=== PATIENT | female | born 1985 | race Caucasian/White ===

== ENCOUNTER 2021-07-15 14:00 | Outpatient (RCR) | payer OTHER, SELFPAY ==
--- NOTE | 2020-11-27 19:55 | MHC.PT.EP ---
[facility] [place] Office [place] Office [place] Office [address] [phone] F: [phone] F: [phone] F: [phone] F: [phone] Physical Therapy Plan of Care Date of Evaluation: 11/27/20 Date of Surgery: Diagnosis: LBP Assessment: lumbopelvic dysfunction resulting in decreased tolerance and ability to perform ambulatory, standing and sitting tasks for duration as well as lifting objects of weight, rolling in bed, and performing LE dressing secondary to decreased hip and core strength, decreased trunk ROM as well as decreased posture, increased tissue tension, pelvic asymmetry and pain. Pt is deemed an appropriate candidate to receive skilled PT in order to address her physical limitations to improve her functional ability. Frequency and Duration: The patient will be seen Short Term Goals: In 1 week: initiate HEP with evidence of compliance. Halfway Goals: In 5 weeks: I with HEP. In 5 weeks: Pt will be able to Treatment Plan: Modalities to reduce pain, spasms and effusion. Manual therapy to restore motion and function. Therapeutic exercise to improve strength and flexibility. Neuromuscular re-education for posture and balance. Therapeutic activities to return to functional activities of daily living. Electronically signed by: Ang Mcwilliams PT. Please sign and return to therapist. Thank you for your referral.
--- NOTE | 2020-12-03 16:37 | MHC.PT.EP ---
[facility] [place] Office [place] Office [place] Office [address] [phone] F: [phone] F: [phone] F: [phone] F: [phone] Physical Therapy Plan of Care Date of Evaluation: 12/03/20 Date of Surgery: Diagnosis: LBP Assessment: Pt is a 35 y/o female referred to PT for eval and treat of LBP who presents with lumbopelvic dysfunction resulting in decreased tolerance and ability to perform ambulatory, standing and sitting tasks for duration as well as lifting objects of weight, and rolling in bed, secondary to decreased hip and core strength, decreased trunk ROM as well as decreased posture, increased tissue tension, pelvic asymmetry and pain. Pt is deemed an appropriate candidate to receive skilled PT in order to address her physical limitations to improve her functional ability. Frequency and Duration: The patient will be seen 2 x / wk x 5 wks. Short Term Goals: In 1 week: initiate HEP with evidence of compliance. In 3 weeks: improve baseline pain with activity to < 5/10; initial: 9/10. Longterm Goals: In 5 weeks: I with HEP. In 5 weeks: Pt will be able to sit as long as she'd like provided choice of seat; initial < 1 hour. In 5 weeks: Pt will improve her core strength to > good; initial: Fair (+) Treatment Plan: Modalities to reduce pain, spasms and effusion. Manual therapy to restore motion and function. Therapeutic exercise to improve strength and flexibility. Neuromuscular re-education for posture and balance. Therapeutic activities to return to functional activities of daily living. Electronically signed by: Ang Mcwilliams PT. Please sign and return to therapist. Thank you for your referral.
--- NOTE | 2021-07-15 15:14 | MHC.PT.DC ---
[facility] [place] Office [place] Office [place] Office [address] Irwin [address] [phone] F: [phone] F: [phone] F: [phone] F: [phone] Physical Therapy Discharge Report Diagnosis: LBP Date of Surgery: Date of Evaluation: 11/27/20 Date of Discharge: 07/15/21 Treatments to Date: 19 Cancellations to Date: 0 No Shows to Date: 0 Discharge Status: Achieved Goals Improved Function Independent with HEP Discharge Summary: Pt is pain free. Pt is independent with her exercises to maintain gains made in therapy. Diastasis recti has improved to less than 2 finger widths. Pt has met all goals. Pt d/c from skilled PT. Electronically signed by: Emma Hu PT DPT Please sign and return to therapist. Thank you for your referral.
== END 2021-10-25 11:25 | disposition home or self-care (01) ==
LOC: HO.PT 14:00
PROVIDERS: PCP Internal Medicine; Visit Provider Internal Medicine
DX: M54.50 Low back pain, unspecified (principal)
CPT/HCPCS: 97014; 97110; 97112; 97140; 97161; 97535

== ENCOUNTER 2022-11-25 08:59 | Outpatient (REF) | payer OTHER, SELFPAY ==
[2022-11-25 12:28] LABS: Alanine Aminotransferase 8 U/L (0-31); Anion Gap 12 (12-20); Aspartate Amino Transferase 13 U/L (5-31); Blood Urea Nitrogen 11 mg/dL (9-16); Calcium 9.1 mg/dL (8.4-10.2); Carbon Dioxide 30 mmol/L (22-29); Chloride 103 mmol/L (96-108); Cholesterol 198 mg/dL; Estimated Glomerular Filt Rate > 60; Glucose Fasting 98 mg/dL (60-99); HDL Cholesterol 52 mg/dL; LDL Cholesterol Calculated 129 mg/dl; Potassium 3.8 mmol/L (3.3-5.1); Sodium 141 mmol/L (135-145); Triglycerides 85 mg/dL
== END 2022-11-25 09:00 | disposition home or self-care (01) ==
LOC: HO.HMGCLDS 08:59
PROVIDERS: PCP Internal Medicine; Visit Provider Internal Medicine
DX: Z00.01 Encounter for general adult medical examination with abnormal findings (principal); F41.9 Anxiety disorder, unspecified; F32.A Depression, unspecified; L40.9 Psoriasis, unspecified
CPT/HCPCS: 36415; 80048; 80061; 84450; 84460

== ENCOUNTER 2023-12-02 07:54 | Outpatient (AMB) | payer OTHER, SELFPAY ==
--- NOTE | 2023-12-02 08:10 | A.OFFPC_ITS ---
<Statement entered by Arelis Atkins MD - 01/24/25 10:32> This note has been administratively?closed. Vital Signs 12/02/23 08:13 Height 5 ft Weight 109 lb BMI 21.3 BP 120/80 Blood Pressure Location Lt brachial Position Sitting Pulse 79 Pulse Source Pulse Oximeter Pulse Oximetry (%) 100 Oxygen Delivery Method Room Air Intake Visit Reasons: Annual PE Intake Note: Pt is here today for her PE: Last papsmear 01/07/23 Is last menstrual period known: Yes Last menstrual period: 11/22/23 Allergies No Known Allergies [No Known Allergies*] Allergy (Verified 12/02/23 08:40) Medication List - Last Reconciled 12/02/23 by Arelis Atkins MD atomoxetine 80 mg PO QAM clindamycin-benzoyl peroxide 1-5 % topical clobetasol 0.05% grams topical PNV #[id number] 30 mg iron-10 mg iron-1 mg caps PO tretinoin 0.05% appl topical Tobacco use date assessed: 12/02/23 Dental Screening Dental Screen Date: 12/02/23 Did you have a dental visit in the last 12 months?: Yes Did you have a dental problem in the last 6 months where you did not have access to dental care?: No Was dental information given to patient?: Patient has dentist [facility] Medical History (Updated 12/02/23 @ 08:45 by Arelis Atkins MD) ADD (attention deficit disorder) Acne vulgaris Anxiety and depression Psoriasis Lumbago Surgical History Hx of section Family History Father Substance abuse Psoriasis Paternal Grandmother Psoriasis Brother Attention deficit disorder Son Attention deficit disorder Social History (Updated 12/02/23 @ 09:04 by Arelis Atkins MD) Housing: House Housing Other:: housing Alcohol intake: never Patient Tobacco Use Status: Never used Tobacco e-Cigarette/Vaping Use: Never Used Second Hand Smoke Exposure: No service: No Current occupational status: unemployed and other Current occupation: housewife Cognitive needs: No Hearing needs: No Vision needs: Yes Female Reproductive History Menstrual Duration of menses: 6-7 days Date of last menstrual period: 11/22/23 control method: permanent sterilization Permanent Sterilization: Vasectomy Date of last pap smear: 01/07/23 Other: sees [facility] Women's , normal pap Questionnaire PHQ-9 Over the last 2 weeks, how often have you been bothered by any of the following problems? 1. Little interest or pleasure in doing things: more than half the days 2. Feeling down, depressed, or hopeless: several days 3. Trouble falling or staying asleep, or sleeping too much: more than half the days 4. Feeling tired or having little energy: more than half the days 5. Poor appetite or overeating: not at all 6. Feeling bad about yourself - or that you are a failure or have let yourself or your family down: not at all 7. Trouble concentrating on things, such as reading the newspaper or watching television: several days 8. Moving or speaking so slowly that other people could have noticed. Or the opposite - being so fidgety or restless that you have been moving around a lot more than usual: several days 9. Thoughts that you would be better off or of hurting yourself in some way: not at all Total score: 9 Depression Screening Interpretation: Positive (sees Psychiatry and had recent neuropsych eval) Depression Screening Follow-up: Existing condition, In treatment and Community Mental Health Worker F/U Depression Screening Done: Yes Source: Developed by Drs. Nikhil Harrison, Kalyn Christopher, Jose A Medrano and colleagues, with an educational venus from [employer]. Thrive Questionnaire Date Thrive assessed: 11/25/22 I am a: Patient What is your living situation today?: I have a steady place to live Within the past 12 months, did the food you bought not last and you didn't have the money to get more?: Never true Within the past 12 months, did you worry whether your food would run out before you got money to buy more?: Never true THRIVE Score: 0 AUDIT C Alcohol Use Questionnaire (AUDIT-C) 1. How often do you have a drink containing alcohol?: Monthly or less 2. How many drinks containing alcohol do you have on a typical day when you are drinking?: 1 or 2 3. How often do you have six or more drinks on one occasion?: Never Total Score: 1 SONJA-7 AMB Questionnaire SONJA-7 Date SONJA - 7 assessed: 12/02/23 Feeling nervous, anxious, or on edge: 2 = More than half the days Not being able to stop or control worryin = More than half the days Worrying too much about different things: 3 = Nearly every day Trouble relaxin = Nearly every day Being so restless that it is hard to sit still: 2 = More than half the days Becoming easily annoyed or irritable: 1 = Several days Feeling afraid as if something awful might happen: 1 = Several days Total SONJA-7 score (0-4 normal; 5-9 mild; 10-14 moderate; 15-21 severe): 14 Source: Developed by Drs. Nikhil Harrison, Kalyn Christopher, Jose A Medrano and colleagues, with an educational venus from [employer]. SONJA-7 Assessment Billing SONJA-7 Assessment Tool: SONJA-7 Assessment 20350 (Currently being seen by Psychiatry had a recent neuropsych evaluation) Physical exam (Primary Care) Vital Signs: Last Vital Signs Pulse 79 12/02/23 08:13 BP 120/80 12/02/23 08:13 Pulse Ox 100 12/02/23 08:13 Oxygen Delivery Method Room Air 12/02/23 08:13 BMI result Body Mass Index 21.3 Tobacco/Smoking Status: Tobacco use Status Tobacco use date assessed 12/02/23 12/02/23 08:16 Patient Tobacco Use Status Never used Tobacco 12/02/23 09:04 e-Cigarette/Vaping Use Never Used 12/02/23 09:04 PHQ-9: PHQ-9 Score PHQ-9: Total score 9 12/02/23 08:49 Depression Screening Interpretation: Positive (sees Psychiatry and had recent neuropsych eval) Depression Screening Follow-up: Existing condition, In treatment and Community Mental Health Worker F/U Thrive Assessment: Date of Thrive Assessment Date Thrive assessed 11/25/22 12/02/23 08:16 Coding Level of Care Code Admin Sign Off/No Billing Diagnoses Annual visit for general adult medical examination with abnormal findings Z00.01 Additional Codes SONJA-7 Assessment Billing - SONJA-7 Assessment Tool: SONJA-7 Assessment 40233 ([id number])
[2023-12-02 08:13] VITALS: BP 120/80; PULSE 79; O2SAT 100; BMI 21.3
== END 2023-12-02 09:05 | disposition home or self-care (01) ==
PROVIDERS: Visit Provider Internal Medicine
DX: Z00.01 Encounter for general adult medical examination with abnormal findings (principal)
CPT/HCPCS: 99499

== ENCOUNTER 2023-12-02 09:06 | Outpatient (REF) | payer OTHER, SELFPAY ==
[2023-12-02 10:37] LABS: MANUAL DIFF FLAG NO
[2023-12-02 10:51] LABS: Basophils Percent Auto 0.5 % (0-2); Eosinophils Percent Auto 0.7 % (0-4); Hematocrit 40.9 % (37.0-47.0); Hemoglobin 13.1 g/dl (12.0-16.0); Imm Gran Abs Auto 0.01 X10*3/uL (0.00-0.03); Imm Gran Pct Auto 0.2 % (0.0-0.4); Lymphocytes Absolute Auto 1.9 X10*3/uL (1.2-4.9); Lymphocytes Percent Auto 31.3 % (20-40); Mean Corpuscular Hemoglobin 28.4 pg (27.0-33.0); Mean Corpuscular Volume 88.5 fL (80.0-98.0); Mean Platelet Volume 9.1 fL (9.4-12.3); Monocytes Absolute Auto 0.3 X10*3/uL (0.1-1.2); Monocytes Percent Auto 5.4 % (2-11); Neutrophils Absolute Auto 3.7 x10*3/uL (2.0-8.3); Neutrophils Percent Auto 61.9 % (45-73); Platelet Count 343 X10*3/uL (160-400); Red Blood Count 4.62 X10*6/uL (4.20-5.50); Red Cell Distribution Width 13.2 % (11.0-16.0); White Blood Count 5.9 X10*3/uL (4.8-10.8)
[2023-12-02 11:14] LABS: Alanine Aminotransferase 13 U/L (0-31); Anion Gap 12 (12-20); Aspartate Amino Transferase 16 U/L (5-31); Blood Urea Nitrogen 12 mg/dL (9-16); Calcium 8.8 mg/dL (8.4-10.2); Carbon Dioxide 29 mmol/L (22-29); Chloride 105 mmol/L (96-108); Cholesterol 187 mg/dL (<200); Estimated Glomerular Filt Rate > 60; Glucose Fasting 95 mg/dL (60-99); HDL Cholesterol 56 mg/dL (>40); LDL Cholesterol Calculated 115 mg/dL (<100); Potassium 3.9 mmol/L (3.3-5.1); Sodium 142 mmol/L (135-145); Triglycerides 80 mg/dL (<150); Vitamin D 25-OH Total 50.8 ng/mL (>30)
== END 2023-12-02 09:07 | disposition home or self-care (01) ==
LOC: HO.HMGCLDS 09:06
PROVIDERS: PCP Internal Medicine; Visit Provider Internal Medicine
DX: Z00.01 Encounter for general adult medical examination with abnormal findings (principal); L70.0 Acne vulgaris; F41.9 Anxiety disorder, unspecified; F32.A Depression, unspecified; L40.9 Psoriasis, unspecified; F98.8 Other specified behavioral and emotional disorders with onset usually occurring in childhood and adolescence
CPT/HCPCS: 36415; 80048; 80061; 82306; 84450; 84460; 85025